=== PATIENT | female | born 1995 | race Caucasian/White ===

== ENCOUNTER 2021-07-09 22:25 | Observation (INO) | payer MEDICAID ==
[~2021-07-09] VITALS: Ht 162.6 cm; Wt 92.5 kg
[2021-07-09 23:22] VITALS: BP 117/63
== END 2021-07-10 01:10 | disposition home or self-care (01) ==
LOC: MLD 22:25
PROVIDERS: ADMIT Obstetrics & Gynecology; ATTEND Obstetrics & Gynecology
DX: O36.8130 Decreased fetal movements, third trimester, not applicable or unspecified (principal); Z3A.31 31 weeks gestation of pregnancy
CPT/HCPCS: 59025; 76815; G0378; Q0092